=== PATIENT | female | born 1975 | race Caucasian/White ===

== ENCOUNTER 2019-01-27 21:52 | Emergency (ER) | payer OTHER ==
[2019-01-27 22:52] VITALS: BP 112/73; PULSE 80; TEMP 98; BMI 27.3
--- NOTE | 2019-01-28 00:35 | PDOC ---
History of Present Illness - General Chief Complaint: Sore Throat Stated Complaint: SORE THROAT Time Seen by Provider: 01/28/19 00:04 History Source: Patient, Family Exam Limitations: Language Barrier Past History - Past Medical History Allergies/Adverse Reactions: Allergies Allergy/AdvReac Type Severity Reaction Status Date / Time No Known Allergies Allergy Verified 01/17/15 22:35 Home Medications: Ambulatory Orders Acetaminophen [Tylenol -] 500 mg PO Q6H PRN 01/17/15 Amoxicillin - [Amoxicillin 500mg Capsule -] 500 mg PO BID #10 capsule 01/18/15 Ibuprofen [Motrin -] 600 mg PO TID PRN #21 tablet 01/18/15 Benzonatate [Tessalon Pearls -] 100 mg PO TID #21 capsule 01/28/19 - Immunization History Immunization Up to Date: No - Suicide/Smoking/Psychosocial Hx Smoking History: Never smoked Have you smoked in the past 12 months: No Hx Alcohol Use: No Substance Use Type: None *Physical Exam - Vital Signs Last Vital Signs Temp Pulse Resp BP Pulse Ox 98 F 80 20 112/73 100 01/27/19 22:18 01/27/19 22:18 01/27/19 22:18 01/27/19 22:18 01/27/19 22:18 - Physical Exam HEENT: positive: Normal ENT Inspection, Normal Voice, TMs Normal, Pharynx Normal. negative: Muffled/Hoarse voice, Nasal Congestion, Rhinorrhea, Sinus Tenderness Neck: negative: Lymphadenopathy (R), Lymphadenopathy (L) Respiratory/Chest: positive: Lungs Clear, Normal Breath Sounds. negative: Respiratory Distress Cardiovascular: positive: Regular Rhythm, Regular Rate, S1, S2. negative: Murmur Gastrointestinal/Abdominal: positive: Normal Bowel Sounds, Soft. negative: Tender, Distended, Guarding, Rebound Integumentary: negative: Rash Neurologic: positive: Alert, Normal Mood/Affect Medical Decision Making - Medical Decision Making 43 y/o F with no sig pmh presents with L sided throat irritation/dryness radiating to L ear x 6 days. Denies fever, cough, rhinorrhea, congestion, abd pain, n/v/d, rash. Throat exam unremarkable with no concern for strep throat Likely viral pharyngitis 01/28/19 00:31 *DC/Admit/Observation/Transfer Diagnosis at time of Disposition: Viral pharyngitis - Discharge Dispostion Disposition: HOME Condition at time of disposition: Stable Decision to Admit order: No - Prescriptions Prescriptions: Benzonatate [Tessalon Pearls -] 100 mg PO TID #21 capsule - Referrals Referrals: Arun Barnes [Primary Care Provider] - 2 Days - Patient Instructions Printed Discharge Instructions: DI for Viral Pharyngitis Additional Instructions: Thank you for choosing [facility]. It was a pleasure taking care of you. Please do salt water gargles daily Use Tessalon perles to help Follow-up with your doctor in 2 days Return to the Emergency Department if your symptoms worsen or persist or have other concerning symptoms. Paulette por elegir el [facility]. Fue un placer cuidar de ti. Por favor haz grgaras de agua salada diariamente. Utilice Tessalon Perles para ayudar Seguimiento con thomas mdico en 2 monteiro. Regrese al Departamento de Emergencias si zehra sntomas empeoran o persisten o si tiene otros sntomas relacionados. Print Language: SWAZI - Post Discharge Activity
== END 2019-01-28 00:46 | disposition home or self-care (01) ==
LOC: JER 21:52
DX: J02.9 Acute pharyngitis, unspecified (principal); B97.89 Other viral agents as the cause of diseases classified elsewhere
CPT/HCPCS: 99281-25